=== PATIENT | male | born 1980 | race Caucasian/White ===

== ENCOUNTER 2018-01-26 18:37 | Emergency (ER) | payer SELFPAY ==
[~2018-01-26] VITALS: Ht 180.3 cm; Wt 114.3 kg
[2018-01-26 20:55] VITALS: BP 125/79
== END 2018-01-26 20:55 | disposition home or self-care (01) ==
LOC: ED 18:37
DX: M79.671 Pain in right foot (principal)
CPT/HCPCS: J1885; J7512